=== PATIENT | female | born 1985 | race Caucasian/White ===

== ENCOUNTER 2019-10-07 05:12 | Emergency (ER) | payer OTHER ==
[~2019-10-07] VITALS: Ht 167.6 cm; Wt 90.7 kg
[~2019-10-07 05:12] MED LIST: APAP500 PO; AUGMENTIN 500-1 EACH PO; AUGMENTIN 875875 MG PO; FLEXERIL PO; LEVAQUIN 500 M500 M1 PO; MOBIC15 MG PO; MOBIC7.5 MG PO; MUCINEX600 MG PO; NORCO 5-325 TA1 EACH PO; ULTRAM 50MG TAB50 MG PO
[2019-10-07] MEDS ORDERED: HYDROCODON-ACE1 EAC8 PO (06:15)
[2019-10-07 06:37] VITALS: BP 123/59
== END 2019-10-07 06:39 | disposition home or self-care (01) ==
LOC: M.ERS 05:12
DX: S89.82XA Other specified injuries of left lower leg, initial encounter (principal); F17.210 Nicotine dependence, cigarettes, uncomplicated; Z90.49 Acquired absence of other specified parts of digestive tract; Z87.01 Personal history of pneumonia (recurrent); Z98.51 Tubal ligation status; Z88.5 Allergy status to narcotic agent; Z88.6 Allergy status to analgesic agent; Z88.8 Allergy status to other drugs, medicaments and biological substances; W00.0XXA Fall on same level due to ice and snow, initial encounter; Y93.89 Activity, other specified; Y92.89 Other specified places as the place of occurrence of the external cause; Y99.8 Other external cause status

== ENCOUNTER 2021-04-03 05:55 | Emergency (ER) | payer OTHER ==
[~2021-04-03] VITALS: Ht 167.6 cm; Wt 90.7 kg
[~2021-04-03 05:55] MED LIST changes: +HYDROCODON-ACE1 EAC8 PO
[2021-04-03] MEDS ORDERED: ACETAMINOPHEN-1 EAC2 PO (06:31)
[2021-04-03] MEDS ORDERED: MELOXICAM15 MG PO (06:31)
[2021-04-03 06:40] VITALS: BP 123/82
== END 2021-04-03 06:40 | disposition home or self-care (01) ==
LOC: M.ERS 05:55
DX: R20.2 Paresthesia of skin (principal); M79.641 Pain in right hand

== ENCOUNTER 2021-07-10 11:01 | Emergency (ER) | payer OTHER ==
[~2021-07-10] VITALS: Ht 167.6 cm; Wt 95.3 kg
[~2021-07-10 11:01] MED LIST changes: +ACETAMINOPHEN-1 EAC2 PO; +MELOXICAM15 MG PO
[2021-07-10] MEDS ORDERED: TRAMADOL 50 MG50 MG PO (12:04)
[2021-07-10 12:17] VITALS: BP 141/81
== END 2021-07-10 12:18 | disposition home or self-care (01) ==
LOC: M.ERS 11:01
DX: S93.602A Unspecified sprain of left foot, initial encounter (principal); F17.210 Nicotine dependence, cigarettes, uncomplicated; Z90.49 Acquired absence of other specified parts of digestive tract; Z98.51 Tubal ligation status; Z88.8 Allergy status to other drugs, medicaments and biological substances; X58.XXXA Exposure to other specified factors, initial encounter; Y93.89 Activity, other specified; Y92.89 Other specified places as the place of occurrence of the external cause; Y99.8 Other external cause status

== ENCOUNTER 2021-08-04 16:13 | Emergency (ER) | payer OTHER ==
[~2021-08-04] VITALS: Ht 167.6 cm; Wt 93.0 kg
[~2021-08-04 16:13] MED LIST changes: +TRAMADOL 50 MG50 MG PO
[2021-08-04 20:11] VITALS: BP 160/91
== END 2021-08-04 20:11 | disposition home or self-care (01) ==
LOC: M.ERS 16:13
DX: M79.89 Other specified soft tissue disorders (principal); F17.210 Nicotine dependence, cigarettes, uncomplicated; Z90.49 Acquired absence of other specified parts of digestive tract; Z98.51 Tubal ligation status; Z88.6 Allergy status to analgesic agent